=== PATIENT | male | born 1965 | race Caucasian/White ===

== ENCOUNTER 2023-08-28 17:19 | Emergency (ER) | payer OTHER ==
[2023-08-28 17:42] VITALS: BP 151/90; O2SAT 100
--- NOTE | 2023-08-28 17:49 | ED Physician Documentation ---
History of Present Illness - Stated complaint Stated Complaint: CUT ON CHIN - Chief complaint Chief Complaint: Laceration - History obtained from History obtained from: Patient (He was pulling up floorboards and 1 hit him in the chin he has a laceration. No other injuries. Last tetanus was September 09, 2012.) PD PAST MEDICAL HISTORY - Past Medical History Past Medical History: No - Past Surgical History Past Surgical History: Yes Ortho: Knee replacement - Present Medications Home Medications: Ambulatory Orders Medication Instructions Recorded Confirmed No Known Home Medications 08/28/23 08/28/23 - Allergies Allergies/Adverse Reactions: Allergies Allergy/AdvReac Type Severity Reaction Status Date / Time No Known Drug Allergies Allergy Verified 08/28/23 17:35 - Social History Does the pt smoke?: No Smoking Status: Never smoker - Immunizations Immunizations: TDAP >10years/unknown PD ED PE NORMAL - Vitals Vital signs reviewed: Yes - General General: Alert and oriented X 3, No acute distress - HEENT HEENT: Other (2cm lac L chin into fat) - Neuro Neuro: Alert and oriented X 3, Normal speech - Psych Psych: Normal mood, Normal affect Results - Vitals Vitals: Vital Signs - 24 hr 08/28/23 17:32 Temperature 36.5 C Heart Rate 71 Respiratory 16 Rate Blood Pressure 151/90 H O2 Saturation 100 Procedures - Laceration (location) L chin Length in cm: 1.5 Wound type: Linear, Into subcut fat Anesthesia: Lidocaine 1% Wound preparation: Irrigated copiously NS Skin layer closure: Prolene, Size #-0 - enter number (6-0 x4) Other: Patient tolerated well, No complications, Neurovascular intact, Tetanus booster given Departure - Departure Disposition: 01 Home, Self Care Clinical Impression: Laceration Condition: Good Record reviewed to determine appropriate education?: Yes Instructions: ED Laceration Facial Sutr Tape Comments: You should note for your records that she received a Tdap shot today. Come back for any signs of infection which would include: Redness, swelling, drainage, i ncreased pain, or fevers. You can wash it soap and water. Keep it covered and moist with bacitracin ointment which is available over the counter; avoid neosporin. Follow-up with your physician in about 7 days for suture removal. Forms: PCP List
[2023-08-28] MEDS: TETANUS/DIPHTHERIA/PERTUSSIS 0.5 ML SYRINGE IM ONE (17:59)
== END 2023-08-28 18:03 | disposition home or self-care (01) ==
LOC: ED 17:19
DX: S01.81XA Laceration without foreign body of other part of head, initial encounter (principal); W22.8XXA Striking against or struck by other objects, initial encounter; Z23 Encounter for immunization
CPT/HCPCS: 12011; 90471; 99282